=== PATIENT | female | born 1980 | race Hispanic/Latino ===

== ENCOUNTER → 2017-04-18 | Outpatient (CLI) | payer OTHER | END | disposition home or self-care (01) | LOC: RAH 10:05 | PROVIDERS: ATTEND Internal Medicine | DX: M25.562 Pain in left knee (principal); M35.1 Other overlap syndromes | CPT/HCPCS: 73562 ==

== ENCOUNTER → 2017-05-15 | Outpatient (CLI) | payer OTHER | END | disposition home or self-care (01) | LOC: LAB 12:08 | PROVIDERS: ATTEND Internal Medicine Endocrinology, Diabetes & Metabolism | DX: E04.2 Nontoxic multinodular goiter (principal); G93.3 Postviral and related fatigue syndromes; N95.1 Menopausal and female climacteric states; F52.8 Other sexual dysfunction not due to a substance or known physiological condition | CPT/HCPCS: 36415; 82533; 82627; 82670; 84144; 84402; 84403; 84439; 84443 ==

== ENCOUNTER → 2017-08-13 | Outpatient (CLI) | payer OTHER | END | disposition home or self-care (01) | LOC: RAH 09:55 | PROVIDERS: ATTEND Family Medicine | DX: M25.511 Pain in right shoulder (principal) | CPT/HCPCS: 73030 ==

== ENCOUNTER → 2018-01-08 | Outpatient (CLI) | payer OTHER ==
[2018-01-08 13:37] LABS: ALBUMIN 4.1 g/dL (3.5-5.0); CREATININE 0.8 mg/dL (0.5-1.5); POTASSIUM 4.1 mmol/L (3.5-5.1); T4 (THYROXINE) 8.2 mcg/dL (4.7-13.3); THYROID STIMULATING HORMONE 1.19 uIU/mL (0.36-3.74)
== END | disposition home or self-care (01) ==
LOC: RAH 11:23
PROVIDERS: ATTEND Internal Medicine Endocrinology, Diabetes & Metabolism
DX: E04.2 Nontoxic multinodular goiter (principal); E55.9 Vitamin D deficiency, unspecified
CPT/HCPCS: 36415; 76536; 80069; 82306; 84436; 84443

== ENCOUNTER → 2018-03-04 | Outpatient (CLI) | payer OTHER | END | disposition home or self-care (01) | LOC: RAH 13:37 | PROVIDERS: ATTEND Family Medicine | DX: Z13.6 Encounter for screening for cardiovascular disorders (principal); R01.1 Cardiac murmur, unspecified | CPT/HCPCS: 75571 ==

== ENCOUNTER → 2018-03-18 | Outpatient (CLI) | payer OTHER ==
[2018-03-18 13:28] LABS: T4 (THYROXINE) 8.8 mcg/dL (4.7-13.3); THYROID STIMULATING HORMONE 1.19 uIU/mL (0.36-3.74)
== END | disposition home or self-care (01) ==
LOC: LAB 12:07
PROVIDERS: ATTEND Physician Assistant Medical
DX: N95.1 Menopausal and female climacteric states (principal); F41.9 Anxiety disorder, unspecified; G93.3 Postviral and related fatigue syndromes; F52.8 Other sexual dysfunction not due to a substance or known physiological condition
CPT/HCPCS: 36415; 82533; 82627; 82670; 83001; 84144; 84402; 84403; 84436; 84443; 84480

== ENCOUNTER → 2018-09-29 | Outpatient (CLI) | payer BC ==
[2018-09-29 17:37] LABS: ALBUMIN 4.1 g/dL (3.5-5.0); CREATININE 0.7 mg/dL (0.5-1.5); PHOSPHORUS 3.7 mg/dL (2.5-4.9); POTASSIUM 4.1 mmol/L (3.5-5.1); THYROID STIMULATING HORMONE 0.17 uIU/mL (0.36-3.74)
== END | disposition home or self-care (01) ==
LOC: RAH 16:13
PROVIDERS: ATTEND Internal Medicine Endocrinology, Diabetes & Metabolism
DX: E04.2 Nontoxic multinodular goiter (principal); E03.8 Other specified hypothyroidism; E55.9 Vitamin D deficiency, unspecified
CPT/HCPCS: 36415; 76536; 80069; 82306; 84439; 84443

== ENCOUNTER → 2018-10-09 | Outpatient (CLI) | payer BC | END | disposition home or self-care (01) | LOC: LAB 14:02 | PROVIDERS: ATTEND Family Medicine | DX: Z12.31 Encounter for screening mammogram for malignant neoplasm of breast (principal) | CPT/HCPCS: 77067 ==

== ENCOUNTER → 2018-10-10 | Outpatient (CLI) | payer BC ==
[2018-10-10 08:47] LABS: BASOPHILS % (AUTO) 0.7 % (0.0-5.0); EOSINOPHILS % (AUTO) 1.4 % (0.0-8.0); HEMATOCRIT 35.1 % (36-48); LYMPHOCYTES % (AUTO) 23.3 % (21.0-51.0); MEAN CORPUSCULAR HEMOGLOBIN 30.9 pg (27.0-33.0); MEAN CORPUSCULAR VOLUME 90.7 fL (79-99); MONOCYTES % (AUTO) 11.6 % (3.0-13.0); PLATELET COUNT (AUTO) 263 K/uL (130-400); RED BLOOD CELL COUNT(AUTO) 3.87 MIL/uL (4.00-5.50); RED CELL DISTRIBUTION WIDTH 14.6 % (11.0-15.5); WHITE BLOOD COUNT (AUTO) 5.1 K/uL (4.8-10.8)
[2018-10-10 09:14] LABS: THYROID STIMULATING HORMONE 0.11 uIU/mL (0.36-3.74)
== END | disposition home or self-care (01) ==
LOC: RAH 10:00
PROVIDERS: ATTEND Family Medicine
DX: E06.3 Autoimmune thyroiditis (principal); R92.2 Inconclusive mammogram; E78.00 Pure hypercholesterolemia, unspecified; D50.9 Iron deficiency anemia, unspecified
CPT/HCPCS: 36415; 76641; 80061; 84439; 84443; 85025

== ENCOUNTER → 2018-11-10 | Outpatient (CLI) | payer BC ==
[2018-11-10 09:39] LABS: THYROID STIMULATING HORMONE 0.07 uIU/mL (0.36-3.74)
== END | disposition home or self-care (01) ==
LOC: LAB 08:31
PROVIDERS: ATTEND Internal Medicine Endocrinology, Diabetes & Metabolism
DX: E03.8 Other specified hypothyroidism (principal); E55.9 Vitamin D deficiency, unspecified
CPT/HCPCS: 36415; 84439; 84443

== ENCOUNTER 2020-11-16 07:16 | Day surgery (SDC) | payer BC ==
[2020-11-08 12:51] LABS: BASOPHILS % (AUTO) 0.3 % (0.0-5.0); EOSINOPHILS % (AUTO) 0.9 % (0.0-8.0); HEMATOCRIT 35.1 % (36-48); LYMPHOCYTES % (AUTO) 15.1 % (21.0-51.0); MEAN CORPUSCULAR HEMOGLOBIN 30.1 pg (27.0-33.0); MEAN CORPUSCULAR HGB CONC 32.2 g/dL (32.0-36.0); MEAN CORPUSCULAR VOLUME 93.6 fL (79-99); MONOCYTES % (AUTO) 6.8 % (3.0-13.0); NEUTROPHILS % (AUTO) 76.6 % (40.0-77.0); PLATELET COUNT (AUTO) 307 K/uL (130-400); RED BLOOD CELL COUNT(AUTO) 3.75 MIL/uL (4.00-5.50); RED CELL DISTRIBUTION WIDTH 12.7 % (11.0-15.5); WHITE BLOOD COUNT (AUTO) 9.5 K/uL (4.8-10.8)
[~2020-11-16] VITALS: Ht 152.4 cm; Wt 64.1 kg
[2020-11-16] VITALS (16 sets, daily range): BP systolic 109–166; BP diastolic 57–82
[~2020-11-16 07:16] MED LIST: LEVO50TA6 PO; MULT-1192 PO; VITA80008 PO; calcium PO; vitamin d PO
[2020-11-16] MEDS ORDERED: NEOSTIGMINE 5MG/5ML SYR IV ONE (07:42)
[2020-11-16] MEDS ORDERED: LIDOCAINE PF 100MG/5ML (2%) SYRINGE 5ML ONE (07:42)
[2020-11-16] MEDS ORDERED: GLYCOPYRROLATE 1 MG/5 ML SYRINGE ONE (07:42)
[2020-11-16] MEDS ORDERED: ROCURONIUM 10MG/1ML SYR 10 MG/ML ML ONE (07:42)
[2020-11-16] MEDS ORDERED: PROPOFOL 10 MG/ML 20ML VIAL IV ONE (07:42)
[2020-11-16] MEDS ORDERED: ONDANSETRON 4MG INJ ONE (07:42)
[2020-11-16] MEDS ORDERED: MIDAZOLAM HCL 1 MG/ML 2ML VIAL ONE (07:42)
[2020-11-16] MEDS ORDERED: SUCCINYLCHOLINE 200MG/10ML SYR ONE (07:42)
[2020-11-16] MEDS ORDERED: DEXAMETHASONE SOD PHOSPHATE 10MG/ML 1ML VIAL ONE (07:42)
[2020-11-16] MEDS ORDERED: LACTATED RINGERS 1000ML 1,000 ML IV ONE (07:56)
[2020-11-16] MEDS ORDERED: LORA10TA60 PO (08:07)
[2020-11-16] MEDS ORDERED: FENTANYL CITRATE PF 50 MCG/1 ML 2ML VIAL ONE (08:21)
[2020-11-16] MEDS ORDERED: MEPERIDINE-PF 25 MG/ML SYG ONE (09:27)
== END 2020-11-16 10:55 | disposition home or self-care (01) ==
LOC: DAH 07:16
PROVIDERS: ATTEND Specialist
DX: R10.2 Pelvic and perineal pain (principal); Z20.822 Contact with and (suspected) exposure to COVID-19; N94.6 Dysmenorrhea, unspecified; N94.10 Unspecified dyspareunia; N85.4 Malposition of uterus; G89.29 Other chronic pain; Z98.51 Tubal ligation status; Z98.890 Other specified postprocedural states; Z79.899 Other long term (current) drug therapy
CPT/HCPCS: 36415 ×2; 49320; 84703; 85025; 86850 ×2; 86900 ×2; 86901 ×2; 87635; A4215 ×2; A4221; A4222; A4223; A4351; A4663; A4930; C1769 ×2; C9803; J0330; J1100; J2001; J2175; J2250; J2405; J2704; J2710; J3010; J3490; J7120

== ENCOUNTER → 2023-08-16 | Outpatient (CLI) | payer BC ==
[~2023-08-16] MED LIST changes: +LORA10TA60 PO; +VITA800012 PO; -VITA80008 PO
== END | disposition home or self-care (01) ==
LOC: RAH 10:38
PROVIDERS: ATTEND Internal Medicine Endocrinology, Diabetes & Metabolism
DX: E04.1 Nontoxic single thyroid nodule (principal)
CPT/HCPCS: 76536

== ENCOUNTER → 2023-09-16 | Outpatient (CLI) | payer BC | END | disposition home or self-care (01) | LOC: RAH 10:00 | PROVIDERS: ATTEND Obstetrics & Gynecology | DX: R10.11 Right upper quadrant pain (principal) | CPT/HCPCS: 76705 ==

== ENCOUNTER → 2023-09-23 | Outpatient (CLI) | payer BC ==
[2023-09-23 11:45] LABS: INR 0.99 (0.85-1.15); PROTHROMBIN TIME 10.7 SEC (9.6-11.6)
[2023-09-23 11:47] LABS: PARTIAL THROMBOPLASTIN TIME 27.3 SEC (26.3-35.5)
== END | disposition home or self-care (01) ==
LOC: RAH 11:07
PROVIDERS: ATTEND Obstetrics & Gynecology
DX: N60.02 Solitary cyst of left breast (principal); Z98.51 Tubal ligation status; Z79.01 Long term (current) use of anticoagulants
CPT/HCPCS: 19083; 85610; 85730; 36415; 88305 ×2; 88112; A4215 ×2; A4648; 19000

== ENCOUNTER 2023-10-25 05:56 | Day surgery (SDC) | payer BC ==
[2023-10-25] VITALS (11 sets, daily range): BP systolic 94–127; BP diastolic 50–67; PULSE 62–86; RESP 15–18; TEMP 97.5–98.8
[~2023-10-25] VITALS: Ht 152.4 cm; Wt 66.7 kg
[~2023-10-25 05:56] MED LIST changes: +LIOT5TAB11 PO; -LORA10TA60 PO; -MULT-1192 PO; -VITA800012 PO; -calcium PO; -vitamin d PO
[2023-10-25] MEDS ORDERED: GLYCOPYRROLATE 0.2 MG/ML 5 ML VIAL ONE (08:05)
[2023-10-25] MEDS ORDERED: proPOFol 10 MG/ML 20ML VIAL IV ONE ×2 (08:05→08:16)
[2023-10-25] MEDS ORDERED: MIDAZOLAM HCL 1 MG/ML 2ML VIAL ONE (08:05)
[2023-10-25] MEDS ORDERED: ketaMINE 50MG/ML SYRINGE 50 MG/ML DISP.SYRIN ONE (08:05)
[2023-10-25] MEDS ORDERED: LIDOCAINE PF 100MG/5ML (2%) SYRINGE 5ML ONE (08:05)
== END 2023-10-25 10:00 | disposition home or self-care (01) ==
LOC: DAH 05:56 → ENDO 05:56
PROVIDERS: ATTEND Internal Medicine Gastroenterology
DX: Z12.11 Encounter for screening for malignant neoplasm of colon (principal); K29.50 Unspecified chronic gastritis without bleeding; K63.89 Other specified diseases of intestine; K64.0 First degree hemorrhoids; K44.9 Diaphragmatic hernia without obstruction or gangrene; K31.89 Other diseases of stomach and duodenum; K21.00 Gastro-esophageal reflux disease with esophagitis, without bleeding; E11.9 Type 2 diabetes mellitus without complications; Z79.899 Other long term (current) drug therapy
CPT/HCPCS: 45380; 43239; 84703; 82948; 36415; J2001; J2250; J2704 ×2; J3490 ×2; A4620; A4215 ×2; A4223; A4222; A4221; A4663; A4606

== ENCOUNTER → 2024-09-03 | Outpatient (CLI) | payer BC ==
--- NOTE | 2024-09-03 15:15 | HMCIMG ---
EXAM: CR right Shoulder, 2 View. CLINICAL HISTORY: RT shoulder pain COMPARISON: X-ray right shoulder 08/13/2017 FINDINGS: BONES: No acute fracture or aggressive appearing osseous lesion. JOINTS: Mild cephalad displacement of the clavicle in relationship to the acromion by approximately 5 mm. The glenohumeral relationship is intact. SOFT TISSUES: The soft tissues are unremarkable. IMPRESSION: 1. No acute osseous injury. 2. Mild acromioclavicular joint separation, unchanged compared with the 08/13/2017 exam, chronic /[place]
== END | disposition home or self-care (01) ==
LOC: RAH 09:07
PROVIDERS: ATTEND Family Medicine
DX: S43.101A Unspecified dislocation of right acromioclavicular joint, initial encounter (principal); M25.811 Other specified joint disorders, right shoulder; M25.511 Pain in right shoulder; G89.29 Other chronic pain; X58.XXXA Exposure to other specified factors, initial encounter; Y93.89 Activity, other specified; Y92.89 Other specified places as the place of occurrence of the external cause; Y99.8 Other external cause status
CPT/HCPCS: 73030

== ENCOUNTER → 2024-09-17 | Outpatient (CLI) | payer BC ==
--- NOTE | 2024-09-18 08:37 | HMCIMG ---
EXAMINATION: COMPLETE TRANSVAGINAL ULTRASOUND OF PELVIS. CLINICAL HISTORY: Pain. COMPARISON: None provided. TECHNIQUE: Multiple real-time grayscale images of the pelvis were obtained with transvaginal transducer. In addition, color Doppler is medically necessary to perform to assess for vascularity and blood flow. FINDINGS: The uterus is retroverted, normal in caliber and measures 8.3 x 3.8 x 5.1 cm in the craniocaudal, AP, and transverse dimensions respectively. There is an intramural fibroid that measures 1.6 x 1.6 x 1.7 cm at the fundus. The endometrium measures approximately 0.31 cm. Cervix appears normal. The right ovary is normal in caliber and measures 2.6 x 1.7 x 2.8 cm. The left ovary is normal in caliber and measures 1.9 x 1.3 x 1.3 cm. There is small free fluid in the cul-de-sac. IMPRESSION: Uterine fibroid. Small free fluid in the cul-de-sac. /[place]
--- NOTE | 2024-09-21 14:02 | HMCIMG ---
BILATERAL BREAST ULTRASOUND: CLINICAL HISTORY: Bilateral breast nodules Finding: Real-time examination of the both breasts demonstrates heterogeneous echotexture throughout both the breasts. Both breasts have multiple cysts suggesting of fibrocystic changes. The right breast at 12:00 there is a cyst within 0.6 x 0.7 x 0.6 cm. The right breast at 2:00 at assessment 0.8 x 0.6 x 0.9 cm.. Right breast at 6:00 there is a cyst measuring 0.4 x 0.4 x 0.4 cm. The right breast at 7:00 there is a cyst measuring 0.5 x 0.4 x 0.5 cm. The right breast and subareolar region there is a prominent cyst measuring 1.6 x 1.4 x 1.7 cm. The right axillary has a benign-appearing lymph node measuring 0.9 x 0.7 x 0.9 cm in the left breast at 12:00 consistent 0.7 x 0.6 x 0.7 cm. The left breast at 5:00 there is cyst measuring 0.6 x 0.3 x 0.6 cm. The left breast at 7:00 there is a complex cyst measuring 1.1 x 1.2 x 1.1 cm. The left breast and 9:00 positions measuring 0.7 x 0.4 x 0.6 cm. The left subareolar region there is a cyst being 0.8 x 0.6 x 0.9 cm. There is no solid mass seen in either breast. IMPRESSION: Fibrocystic changes with moderately heterogeneously dense breasts. No mass identified. CATEGORY 2: BENIGN FINDINGS Recommend monthly self breast exam as well as annual clinical examination. A negative x-ray should not delay biopsy if a dominant or clinically suspicious mass is present, since 8-10% of cancers are not identified by mammography. Dense breasts particularly, may obscure an underlying neoplasm. Some of these may be detected clinically and therefore, clinical examination is an essential part of breast evaluation.
--- NOTE | 2024-09-21 14:07 | HMCIMG ---
DIGITAL DIAGNOSTIC MAMMOGRAM WITH TOMOSYNTHESIS, DATED 09/17/2024 1:00 AM CDT Technique: The digital mammographic examination of both breasts in craniocaudal and mediolateral oblique views along with CAD was obtained. Tomosynthesis of both breasts was obtained. Ultrasound of both breasts were also obtained. History: This is a 44 years year-old female 4, para 4 Ab 0 for 3D Diagnostic mammogram. Patient has history of left breast biopsy with benign on 09/23/2023. Patient has no family history of breast cancer. Patient complaining of left breast pain and lump for 4 months Reference:Prior mammogram from 09/13/2023, 02/23/2022 and 11/11/2019 are available for comparison.. Breast composition: Breast composition C: The breasts are heterogeneously dense, which may obscure small masses. Finding: The digital mammographic examination of both breasts in craniocaudal and mediolateral oblique view along with CAD demonstrates to be moderately heterogeneously nodular dense breasts.. There is no evidence of any dendritic mass, cluster microcalcification or architectural distortion. The Tomosynthesis demonstrates no multiple lesions of varying sizes which ultrasound demonstrate to be fibrocystic. There is also large boluses seen in both breasts in fairly.. The retromammary fat appears to be normal. IMPRESSION: Moderately heterogeneously nodular dense breasts with fibrocystic changes and oilcysts. No solid mass and confirmed by ultrasound.. I would recommend annual mammography with tomography with bilateral breast sonogram FINAL ASSESSMENT: ACR: BI-RAD- 2. Benign: Also a negative assessment; finding(s) benign abnormalities. Management: Routine mammography screening. Likelihood of Cancer: Essentially 0% likelihood of malignancy. NOTE: IF A WORK-UP OF THIS PATIENT LEADS TO A BIOPSY, PLEASE FORWARD A COPY OF THE PATHOLOGY REPORT TO OUR OFFICE REQUIRED BY [employer] NOVEMBER 11, 1993. A NEGATIVE MAMMOGRAM SHOULD NOT PRECLUDE BIOPSY OF A CLINICALLY PALPABLE SUSPICIOUS MASS, 10% OF BREAST CANCERS ARE MAMMOGRAPHICALLY OCCULT. THIS MAMMOGRAPHY FACILITY IS FULLY ACCREDITED BY THE [employer]OD AND DRUG [employer] (FDA). THANK YOU FOR THIS REFERRAL.
== END | disposition home or self-care (01) ==
LOC: RAH 14:05
PROVIDERS: ATTEND Obstetrics & Gynecology
DX: N60.11 Diffuse cystic mastopathy of right breast (principal); N60.12 Diffuse cystic mastopathy of left breast; N85.2 Hypertrophy of uterus; D25.9 Leiomyoma of uterus, unspecified; R92.333 Mammographic heterogeneous density, bilateral breasts
CPT/HCPCS: 76830; 77062; 77066

== ENCOUNTER → 2024-10-09 | Outpatient (CLI) | payer BC ==
--- NOTE | 2024-10-10 00:53 | HMCIMG ---
EXAM: MR right Upper Extremity With IV contrast, Shoulder. CLINICAL HISTORY: M25.511Pain in right shoulder TECHNIQUE: Multisequence, multiplanar magnetic resonance images of the right shoulder without intravenous contrast. Series acquired: 4 - AX T1 - TR: 489.0 - TE: 9.9 - ET: 4.0 - Thk: 3.0 5 - AX STIR - TR: 3098.0 - TE: 46.1 - ET: 16.0 - Thk: 3.0 6 - COR T2 - TR: 4999.0 - TE: 100.5 - ET: 21.0 - Thk: 3.0 7 - COR STIR - TR: 3132.0 - TE: 37.6 - ET: 16.0 - Thk: 3.0 8 - SAG T2 - TR: 4451.0 - TE: 100.6 - ET: 21.0 - Thk: 3.0 9 - SAG PD FS PROPELLER - TR: 3261.1 - TE: 58.8 - ET: 16.0 - Thk: 3.0 CONTRAST: None. COMPARISON: None provided. FINDINGS: TENDONS: Thickening of the supraspinatus, infraspinatus tendons consistent with tendinosis. Articular as well as bursal surface tendon degeneration noted. Small articular surface partial tear leading edge distal supraspinatus is noted involving approximately 20% tendon thickness. SUBSCAPULARIS: Unremarkable. TERES MINOR: Unremarkable. BICEPS BRACHII, LONG HEAD: Unremarkable. LIGAMENTS: GLENOHUMERAL: Unremarkable. JOINTS: GLENOHUMERAL JOINT: Unremarkable. No effusion. A displaced labral tear is not demonstrated. CORACOACROMIAL ARCH: The acromioclavicular joint demonstrates moderate degenerative changes. Moderate subacromial spur. Thickened coracoacromial ligament BONES: No acute fracture or aggressive appearing osseous lesion. Bone marrow signal intensity is within normal limits. MUSCLES: Normal girth and signal intensity. MISCELLANEOUS: Physiologic amount of joint fluid. Small amount of fluid subacromial-subdeltoid bursa IMPRESSION: Rotator cuff tendinosis, tendon degeneration with small articular surface partial tear leading edge distal supraspinatus. No full-thickness rotator cuff tear or labral injury Mild subacromial subdeltoid bursitis /[place]
== END | disposition home or self-care (01) ==
LOC: RAH 12:05
PROVIDERS: ATTEND Family Medicine
DX: M75.111 Incomplete rotator cuff tear or rupture of right shoulder, not specified as traumatic (principal); M67.813 Other specified disorders of tendon, right shoulder; M75.51 Bursitis of right shoulder; M19.011 Primary osteoarthritis, right shoulder; M77.8 Other enthesopathies, not elsewhere classified; M25.511 Pain in right shoulder; M79.18 Myalgia, other site
CPT/HCPCS: 73221